=== PATIENT | female | born 1975 | race Caucasian/White ===

== ENCOUNTER 2023-06-22 07:22 | Day surgery (SDC) | payer BC, SELFPAY ==
--- NOTE | 2023-06-22 07:35 | US_ITS ---
[address] [address] Patient Name: HECTOR RONQUILLO MRN: [id number] date: 1975 Sex: F Assigned Patient Location: US Current Patient Location: US Accession/Order Number: [id number] Exam Date: 06/22/2023 08:00 Report Date: 06/22/2023 09:06 At the request of: EMILIA MITTAL Procedure: US biopsy thyroid EXAMINATION: US biopsy thyroid HISTORY: thyroid nodule COMPARISON: 11/02/2022 TECHNIQUE: After obtaining informed consent, an ultrasound-guided biopsy was performed in the usual sterile manner. FINDINGS: IMAGING: Ultrasound BIOPSY NEEDLE: 25-gauge, 2 inch SPECIMEN TYPE, #, LOCATION: 3 fine-needle aspirates, 1.2 cm right thyroid nodule MEDICATION: 3 cc 1% buffered lidocaine COMPLICATIONS: None. LABORATORY: Pathology and genetic testing OTHER: Negative. US/US biopsy thyroid IMPRESSION: Uneventful ultrasound guided biopsy. The patient was instructed to obtain follow up care and biopsy results from the referring physician. Electronically authenticated by: NIURKA FORREST Date: 06/22/2023 09:06
[2023-06-22 07:55] VITALS: BP 161/109; PULSE 65; O2SAT 97
[2023-06-22] MEDS: LIDOCAINE HCL 10 ML, SODIUM BICARBONATE 1 MEQ INJ (08:40)
--- NOTE | 2023-06-22 11:04 | SUR.PREOP ---
06/10/23 Pt instructed on procedure, date, time, and prep.
== END 2023-06-22 09:00 | disposition home or self-care (01) ==
LOC: US 07:27
PROVIDERS: Radiology Diagnostic Radiology; PCP Family Medicine; Visit Provider Otolaryngology
DX: E04.1 Nontoxic single thyroid nodule (principal)
CPT/HCPCS: 10005; 88173